=== PATIENT | male | born 2000 | race Asian ===

== ENCOUNTER 2019-02-27 21:03 | Emergency (ER) | payer OTHER ==
[~2019-02-27] VITALS: Ht 170.2 cm; Wt 65.8 kg
[2019-02-27 21:10] VITALS: BP_SYST 117
--- NOTE | 2019-02-27 21:10 | NUR ---
Patient triaged and placed in waiting room. VSS and patient appears in no acute distress at this time. Accompanied by PARENTS, awaiting available bed, and MD notified of need for MSE.
--- NOTE | 2019-02-27 21:39 | NUR ---
Pt taking to radiology awake via wheelchair.
--- NOTE | 2019-02-27 21:44 | NUR ---
ER at bedside examining patient.
--- NOTE | 2019-02-27 21:44 | NUR ---
Patient to ER bed 1 to gown for evaluation. Side rails up. Report given to Jeny MALDONADO.
[2019-02-27] MEDS ORDERED: ONDANSETRON 4 MG ODT TAB PO ONE (22:00)
[2019-02-27] MEDS ORDERED: HYDROcodone/ACETAMIN 5-325 MG TAB (NORCO/ VICODIN) PO ONE (22:00)
--- NOTE | 2019-02-27 22:35 | NUR ---
Patient given written and verbal discharge instructions and verbalizes understanding. ER MD discussed with patient the results and treatment provided. Patient in stable condition. ID arm band removed. Rx of ZOFRAN AND NORCO given. Patient educated on pain management and to follow up with PMD. Pain Scale 4/10. Opportunity for questions provided and answered. Medication side effect fact sheet provided.
[2019-02-27 22:36] VITALS: BP_SYST 121
== END 2019-02-27 22:36 | disposition home or self-care (01) ==
LOC: SED 21:03
DX: S83.91XA Sprain of unspecified site of right knee, initial encounter (principal); R03.0 Elevated blood-pressure reading, without diagnosis of hypertension; Z88.2 Allergy status to sulfonamides; Z88.8 Allergy status to other drugs, medicaments and biological substances; W50.0XXA Accidental hit or strike by another person, initial encounter; Y93.72 Activity, wrestling; Y92.89 Other specified places as the place of occurrence of the external cause; Y99.8 Other external cause status
CPT/HCPCS: 29505; 73564; 99283; Q0162

== ENCOUNTER 2019-06-14 14:16 | Emergency (ER) | payer OTHER ==
[~2019-06-14] VITALS: Ht 170.2 cm; Wt 68.0 kg
[2019-06-14 14:35] VITALS: BP_SYST 119
--- NOTE | 2019-06-14 16:06 | NUR ---
BROUGHT BACK TO BED #5 AND REPORT GIVEN TO KORY
--- NOTE | 2019-06-14 16:14 | NUR ---
PATIENT PRESENTS TO THE ER WITH FIVE DAY HX OF DRY AND TIGHT BODY WIDE SKIN RASH; NO TRAUMA, NO OTHER REMARKABLE S/S
--- NOTE | 2019-06-14 16:15 | NUR ---
ERMD EVALUATION 161
[2019-06-14 16:51] VITALS: BP_SYST 129
--- NOTE | 2019-06-14 16:56 | NUR ---
REASSESSMENT BY ERMD; ACI GIVEN AND PATIENT INDICATED FULL UNDERSTANDING; DISCHARGED AMBULATORY; UNCHANGED
== END 2019-06-14 16:56 | disposition home or self-care (01) ==
LOC: SED 14:16
DX: L30.9 Dermatitis, unspecified (principal); Z88.2 Allergy status to sulfonamides; Z88.8 Allergy status to other drugs, medicaments and biological substances
CPT/HCPCS: 99283

== ENCOUNTER 2019-07-08 21:03 | Emergency (ER) | payer OTHER ==
[~2019-07-08] VITALS: Ht 170.2 cm; Wt 66.7 kg
[2019-07-08 21:08] VITALS: BP_SYST 130
--- NOTE | 2019-07-08 21:08 | NUR ---
Patient triaged and placed in waiting room. VSS and patient appears in no acute distress at this time. Accompanied by self, awaiting available bed, and MD notified of need for MSE.
--- NOTE | 2019-07-09 02:18 | NUR ---
Patient to ER bed 4 to gown for evaluation. Side rails up. Report given to Latanya MALDONADO.
--- NOTE | 2019-07-09 03:00 | NUR ---
ER at bedside examining patient.
[2019-07-09] MEDS ORDERED: ONDANSETRON 4 MG ODT TAB PO ONE (04:30)
[2019-07-09] MEDS ORDERED: ACETAMINOPHEN 500 MG TABLET PO ONE (04:30)
[2019-07-09] MEDS ORDERED: MORPHINE 2 MG/ML INJ. SYRINGE IM ONE (04:30)
--- NOTE | 2019-07-09 04:30 | NUR ---
MEDS GIVEN ORDERED FOR ETHAN
[2019-07-09 04:39] LABS: BASOPHILS % (AUTO) 0.7 % (0.0-2.0); EOSINOPHILS % (AUTO) 14.8 % (0.0-4.0); HEMATOCRIT 45.7 % (36-54); HEMOGLOBIN 15.3 g/dL (14.0-18.0); LYMPHOCYTES # (AUTO) 1.6 K/uL (1.0-5.5); LYMPHOCYTES % (AUTO) 23.6 % (20.5-51.5); MEAN CORPUSCULAR HEMOGLOBIN 31 pg (27-31); MEAN CORPUSCULAR HGB CONC 33 % (32-36); MEAN CORPUSCULAR VOLUME 93 fL (79.0-98.0); MONOCYTES # (AUTO) 0.6 K/uL (0.0-1.0); MONOCYTES % (AUTO) 8.9 % (1.7-9.3); NEUTROPHILS # (AUTO) 3.5 K/uL (1.8-7.7); PLATELET COUNT (AUTO) 331 K/uL (130-430); RED BLOOD CELL COUNT(AUTO) 4.93 MIL/uL (4.2-6.2); RED CELL DISTRIBUTION WIDTH 13.8 % (9.0-15.0); WHITE BLOOD COUNT (AUTO) 6.8 K/uL (4.5-11.0)
[2019-07-09 04:50] LABS: CALCIUM 8.8 mg/dL (8.4-11.0); CREATININE 0.82 mg/dL (0.55-1.30); POTASSIUM 3.5 mmol/L (3.5-5.1)
[2019-07-09 04:54] LABS: PROTHROMBIN TIME 9.9 SECS (9.5-12.5)
[2019-07-09 04:55] LABS: ALBUMIN 3.9 g/dL (3.4-4.8); TOTAL BILIRUBIN 0.6 mg/dL (0.0-1.0)
[2019-07-09 06:24] VITALS: BP_SYST 126
--- NOTE | 2019-07-09 06:29 | NUR ---
Patient to be transferred to []. Is being transferred due to higher level of care. Receiving facility has accepting physician and available space. ER physician has signed transfer form. Patient or responsible democrat has agreed to transfer and signed form. Patient belongings inventoried and will be sent with patient. Copy of nursing notes, lab reports, EKG, Physicians Orders and X-rays to be sent with patient. Report called to [] at receiving facility. Receiving physician is []. [] ambulance service has been called for transfer. ETA is [].
== END 2019-07-09 06:24 | disposition short-term general hospital (02) ==
LOC: SED 21:03
DX: S09.90XA Unspecified injury of head, initial encounter (principal); Z88.2 Allergy status to sulfonamides; Z88.8 Allergy status to other drugs, medicaments and biological substances; W18.39XA Other fall on same level, initial encounter; Y93.89 Activity, other specified; Y92.89 Other specified places as the place of occurrence of the external cause; Y99.8 Other external cause status
CPT/HCPCS: 36415; 70450; 80053; 85025; 85610; 85730; 93005; 96372; 99285; J2270; Q0162